=== PATIENT | female | born 1995 | race American Indian/Alaskan Native ===

== ENCOUNTER 2016-10-28 10:18 | Emergency (ER) | payer OTHER ==
[2016-10-28 11:06] VITALS: BP 122/68
[2016-10-28] MEDS ORDERED: BENADRYL PO ONE (12:54)
--- NOTE | 2016-10-28 13:45 | Emergency Department Report ---
Entered by BENJAMIN BELL, acting as scribe for NICHOLAS HERRERA PA. ED General Adult HPI - General Chief complaint: Skin Rash Stated complaint: SKIN IRRITATION /BACK AREA Time Seen by Provider: 10/28/16 12:50 Source: patient Mode of arrival: Ambulatory Limitations: No Limitations - History of Present Illness Initial comments: 21 y/o female with PMHx eczema, asthma presents to ED c/o itching to her back, now spreading to her abdomen since 1 week ago Pt states the itching and rashes affect her skin folds on her left side. She reports associated eczematous rash under her left breast. She describes a prickly, sharp pain that is worse after scratching. Pt admits to applying goldbond and her prescription triamcinolone with no relief. She reports she has also administered Benadryl with mild temporary relief. Pt also reports Hx of thyroid cancer and colon cancer, noting thyroidectomy in March, and partial colectomy in Oct, 2015 with compliance in her colonoscopies, noting her last one was last year. Pt advises she is seeking a new PCP. She has no additional complaints Onset/Timin -: Gradual, week(s) Location: back, abdomen Radiation: non-radiation Severity scale (0 -10): 0 Quality: sharp, other (prickly) Consistency: constant Improves with: other (benadryl, temporarily) Worsens with: none Associated Symptoms: rash (under left breast, eczema). denies: other (drainage) Treatments Prior to Arrival: other (benadryl, goldbond, triamcinolone) - Related Data Home Medications Medication Instructions Recorded Confirmed Last Taken Albuterol *Only Ed* [Proventil 2.5 mg IH Q4H PRN 03/03/15 12/12/15 Unknown 0.5% NEBS] Levothyroxine Sodium [Synthroid] 175 mcg PO DAILY 03/03/15 12/12/15 11/21/15 Psyllium Seed (with Sugar) 1 each PO BID 12/12/15 12/12/15 12/11/15 [Metamucil] Previous Rx's Medication Instructions Recorded Last Taken Type ALBUTEROL Inhaler [ProAir HFA 2 puff IH QID PRN #1 inhalation 03/03/15 Unknown Rx Inhaler] Albuterol Sulfate [Albuterol 0.63% 0.63 mg IH TID PRN #1 box 03/03/15 Unknown Rx NEBS] Cetirizine HCl [ZyrTEC] 10 mg PO QDAY #30 capsule 10/28/16 Unknown Rx Fluconazole [Diflucan TAB] 200 mg PO QDAY #2 tablet 10/28/16 Unknown Rx Allergies Allergy/AdvReac Type Severity Reaction Status Date / Time yoel AdvReac Intermediate Swelling Uncoded 09/25/15 12:19 ED Review of Systems Comment: All other systems reviewed and negative Constitutional: denies: chills, fever Skin: rash (under left breast), pruritus (back, abdomen) ED Past Medical Hx - Past Medical History Hx Asthma: Yes Additional medical history: Hypothyroidism - Surgical History Additional Surgical History: Thyroid Sugery; Partial colon removed - Social History Smoking Status: Never Smoker Substance Use Type: None - Medications Home Medications: Home Medications Medication Instructions Recorded Confirmed Last Taken Type ALBUTEROL Inhaler [ProAir HFA 2 puff IH QID PRN #1 inhalation 03/03/15 12/12/15 Unknown Rx Inhaler] Albuterol *Only Ed* [Proventil 2.5 mg IH Q4H PRN 03/03/15 12/12/15 Unknown History 0.5% NEBS] Albuterol Sulfate [Albuterol 0.63% 0.63 mg IH TID PRN #1 box 03/03/15 12/12/15 Unknown Rx NEBS] Levothyroxine Sodium [Synthroid] 175 mcg PO DAILY 03/03/15 12/12/15 11/21/15 History Psyllium Seed (with Sugar) 1 each PO BID 12/12/15 12/12/15 12/11/15 History [Metamucil] Cetirizine HCl [ZyrTEC] 10 mg PO QDAY #30 capsule 10/28/16 Unknown Rx Fluconazole [Diflucan TAB] 200 mg PO QDAY #2 tablet 10/28/16 Unknown Rx ED Physical Exam - General Limitations: No Limitations - Other Other exam information: GENERAL: Patient is alert and oriented x 3. No apparent distress, normal gait, atraumatic. HEAD: Head is normocephalic and atraumatic. EYES: Extraocular movements are intact. Pupils are equal, round, and reactive to light and accommodation. EARS: Symmetrical, atraumatic, non tender, ear canal clear with moderate cerumen , tympanic membrane non inflamed. Gross auditory nml bilaterally. NOSE: Nose symmetrical, nontender. Nares appeared normal. MOUTH:Mouth is well hydrated and without lesions. Mucous membranes are moist. Uvula midline. Tongue not elevated. Posterior pharynx clear, no exudate or lesions. Tonsils are not erythematous or swollen. Patent airway. NECK: Supple. Non edematous, no carotid bruits. No lymphadenopathy or thyromegaly. LUNGS: Symmetrical with respiration. No wheezing, rales or crackles, CTAB. HEART: Regular rate and rhythm with normal S1/S2 present. No murmurs, rubs, or gallops. ABDOMEN: Soft, nondistended. Nontender to palpation on all quadrants. No organomegaly was noted. Positive bowel sounds. No CVA tenderness. SKIN: Warm and dry. Rash noted to skin folds on left back, flank, abdomen that is hyperpigmented with peeling edges and with no discharge, no odor, no moisture PSYCHIATRIC: Mood is congruent with affect. Denies suicidal or homicidal ideations. ED Course Vital Signs 10/28/16 11:04 Temperature 98.4 F Pulse Rate 66 Respiratory 16 Rate Blood Pressure 122/68 O2 Sat by Pulse 100 Oximetry ED Medical Decision Making - Medical Decision Making 21 year old female patient presents today with pruritis to left back, flank, abdomen in her skin folds and eczematous rash under her left breast. Patient is in no acute distress at this time. She will be discharged home with Benadryl, Zyrtec, and Diflucan and is encouraged to follow up with a primary care provider. Patient referred to Dr. Cooper at [facility] as she is searching for a new PCP. She is instructed to apply cornstarch or goldbond powder to her skin folds to alleviate moisture. She is encouraged to return to the emergency room for any worsening symptoms. ED Disposition Clinical Impression: Rash Disposition: DISCHARGED TO HOME OR SELFCARE Is pt being admited?: No Does the pt Need Aspirin: No Condition: Stable Instructions: Acute Rash (ED) Additional Instructions: Please take your Benadryl, Zyrtec, and Diflucan as prescribed. You may also apply goldbond powder or cornstarch to the affected skin folds for relief. I do not recommend application of talc powder as this increases risk for ovarian cancer. You are also receiving a referral to [facility] for Dr. Cooper, who you should follow up with. Prescriptions: Cetirizine HCl [ZyrTEC] 10 mg PO QDAY #30 capsule Fluconazole [Diflucan TAB] 200 mg PO QDAY #2 tablet Referrals: PRIMARY CARE, [Primary Care Provider] - 3-5 Days AKILA COOPER MD [Staff Physician] - 3-5 Days Forms: Work/School Release Form(ED) This documentation as recorded by the RAY rollins AHSAN,accurately reflects the service I personally performed and the decisions made by me,NICHOLAS HERRERA PA.
== END 2016-10-28 13:48 | disposition home or self-care (01) ==
LOC: ED 10:18
DX: R21 Rash and other nonspecific skin eruption (principal); J45.909 Unspecified asthma, uncomplicated; E03.9 Hypothyroidism, unspecified; Z91.018 Allergy to other foods
CPT/HCPCS: 99282

== ENCOUNTER 2016-12-07 19:12 | Emergency (ER) | payer OTHER ==
[2016-12-07] MEDS ORDERED: TYLENOL ONE (19:54)
[2016-12-07] MEDS ORDERED: TYLENOL PO ONE (20:04)
[2016-12-07 20:24] LABS: Basophils % (Auto) 1.1 % (0.0-1.8); Eosinophils % (Auto) 1.5 % (0.0-4.3); Hematocrit 37.7 % (30.3-42.9); Hemoglobin 12.3 gm/dl (10.1-14.3); Mean Corpuscular HGB Conc 33 % (30-34); Mean Corpuscular Hemoglobin 28 pg (28-32); Mean Corpuscular Volume 86 fl (79-97); Platelet Count 272 K/mm3 (140-440); Red Blood Count 4.39 M/mm3 (3.65-5.03); Red Cell Distribution Width 14.6 % (13.2-15.2); White Blood Count 7.3 K/mm3 (4.5-11.0)
[2016-12-07 20:32] LABS: Alanine Aminotransferase 14 units/L (7-56); Albumin 4.2 g/dL (3.9-5); Albumin/Globulin Ratio 1.1 %; Alkaline Phosphatase 51 units/L (35-129); Anion Gap 18 mmol/L; BUN/Creatinine Ratio 5.45; Blood Urea Nitrogen 6 mg/dL (7-17); Calcium 8.7 mg/dL (8.4-10.2); Carbon Dioxide 25 mmol/L (22-30); Chloride 99.5 mmol/L (98-107); Glucose 96 mg/dL (65-100); Lipase 35 units/L (13-60); Sodium 138 mmol/L (137-145); Total Protein 7.9 g/dL (6.3-8.2)
[2016-12-07 20:41] LABS: Bilirubin,Urine NEG (Negative); Blood,Urine NEG (Negative); Ketones,Urine NEG (Negative); Leukocyte Esterase,Urine NEG (Negative); Mucus,Urine FEW /HPF; Nitrite,Urine NEG (Negative); Protein,Urine <15 mg/dL mg/dL (Negative); Urobilinogen,Urine < 2.0 mg/dL (<2.0)
[2016-12-08] MEDS ORDERED: NACL ONE (05:54)
--- NOTE | 2016-12-08 06:24 | Cat Scan Report ---
FINAL REPORT PROCEDURE: CT ABDOMEN PELVIS W CON TECHNIQUE: Computerized axial tomography of the abdomen and pelvis was performed after the IV injection of iodinated nonionic contrast. HISTORY: pain, N V COMPARISON: No prior studies are available for comparison. FINDINGS: Visualized lower thorax: No significant abnormality. Liver: Normal size and attenuation. Spleen: Normal size and attenuation. Gallbladder and biliary system: Normal. Pancreas: Normal. Adrenals: Normal. Kidneys: Normal. GI tract: No obstruction. No ileus or enteritis. The cecum, appendix region and colon are normal. Moderate fecal debris in the lower colon.. Lymph nodes and mesentery: Normal. Vasculature: Normal. Bladder: Normal. Reproductive organs: Normal. Peritoneum: No free fluid. Musculoskeletal structures: No significant abnormality. Other: None. IMPRESSION: There is no evidence of intestinal or urinary tract obstruction. No ileus or enteritis.
--- NOTE | 2016-12-08 09:18 | Emergency Department Report ---
ED General Adult HPI - General Chief complaint: Abdominal Pain Stated complaint: VOMITING/FATIGUE/DIZZINESS/THROAT PAIN Time Seen by Provider: 12/08/16 08:38 Source: patient Mode of arrival: Ambulatory Limitations: No Limitations - History of Present Illness Initial comments: Patient states that she's had lower abdominal pain for one week. She claims that she's had colon surgery for cancer about one year ago. She never had chemotherapy. She states that her next checkup is in one year. She states that she does not have a primary care provider and has not followed up with her surgeon. She had labs and CT of the abdomen prior to arrival. On my encounter she is found laying in the gurney with her significant other. She is in no distress. She is not having any substantial abdominal pain at this time. She denies fever or chills. She has not had any change in her bowel habits nor any nausea or vomiting. All her care was obtained at [facility]. -: week(s) Location: abdomen Radiation: non-radiation Quality: aching Consistency: intermittent Improves with: none Worsens with: none Associated Symptoms: denies other symptoms Treatments Prior to Arrival: none - Related Data Home Medications Medication Instructions Recorded Confirmed Last Taken Albuterol *Only Ed* [Proventil 2.5 mg IH Q4H PRN 03/03/15 12/12/15 Unknown 0.5% NEBS] Levothyroxine Sodium [Synthroid] 175 mcg PO DAILY 03/03/15 12/12/15 11/21/15 Psyllium Seed (with Sugar) 1 each PO BID 12/12/15 12/12/15 12/11/15 [Metamucil] Previous Rx's Medication Instructions Recorded Last Taken Type ALBUTEROL Inhaler [ProAir HFA 2 puff IH QID PRN #1 inhalation 03/03/15 Unknown Rx Inhaler] Albuterol Sulfate [Albuterol 0.63% 0.63 mg IH TID PRN #1 box 03/03/15 Unknown Rx NEBS] Cetirizine HCl [ZyrTEC] 10 mg PO QDAY #30 capsule 10/28/16 Unknown Rx Fluconazole [Diflucan TAB] 200 mg PO QDAY #2 tablet 10/28/16 Unknown Rx traMADol [Ultram] 50 mg PO Q6HR PRN #14 tablet 12/08/16 Unknown Rx Allergies Allergy/AdvReac Type Severity Reaction Status Date / Time yoel AdvReac Intermediate Swelling Uncoded 09/25/15 12:19 ED Review of Systems ROS: Stated complaint: VOMITING/FATIGUE/DIZZINESS/THROAT PAIN Other details as noted in HPI Constitutional: denies: chills, fever Eyes: denies: eye pain, eye discharge, vision change ENT: denies: ear pain, throat pain Respiratory: denies: cough, shortness of breath, wheezing Cardiovascular: denies: chest pain, palpitations Endocrine: no symptoms reported Gastrointestinal: as per HPI, abdominal pain. denies: nausea, diarrhea Genitourinary: denies: urgency, dysuria, discharge Musculoskeletal: denies: back pain, joint swelling, arthralgia Skin: denies: rash, lesions Neurological: denies: headache, weakness, paresthesias Psychiatric: denies: anxiety, depression Hematological/Lymphatic: denies: easy bleeding, easy bruising ED Past Medical Hx - Past Medical History Previous Medical History?: Yes Hx Asthma: Yes Additional medical history: Hypothyroidism - Surgical History Past Surgical History?: Yes Additional Surgical History: Thyroid Sugery; Partial colon removed - Social History Smoking Status: Never Smoker Substance Use Type: None - Medications Home Medications: Home Medications Medication Instructions Recorded Confirmed Last Taken Type ALBUTEROL Inhaler [ProAir HFA 2 puff IH QID PRN #1 inhalation 03/03/15 12/12/15 Unknown Rx Inhaler] Albuterol *Only Ed* [Proventil 2.5 mg IH Q4H PRN 03/03/15 12/12/15 Unknown History 0.5% NEBS] Albuterol Sulfate [Albuterol 0.63% 0.63 mg IH TID PRN #1 box 03/03/15 12/12/15 Unknown Rx NEBS] Levothyroxine Sodium [Synthroid] 175 mcg PO DAILY 03/03/15 12/12/15 11/21/15 History Psyllium Seed (with Sugar) 1 each PO BID 12/12/15 12/12/15 12/11/15 History [Metamucil] Cetirizine HCl [ZyrTEC] 10 mg PO QDAY #30 capsule 10/28/16 Unknown Rx Fluconazole [Diflucan TAB] 200 mg PO QDAY #2 tablet 10/28/16 Unknown Rx traMADol [Ultram] 50 mg PO Q6HR PRN #14 tablet 12/08/16 Unknown Rx ED Physical Exam - General Limitations: No Limitations General appearance: alert, in no apparent distress - Head Head exam: Present: atraumatic, normocephalic - Eye Eye exam: Present: normal appearance. Absent: scleral icterus - ENT ENT exam: Present: mucous membranes moist - Neck Neck exam: Present: normal inspection. Absent: tenderness, meningismus - Respiratory Respiratory exam: Present: normal lung sounds bilaterally. Absent: respiratory distress - Cardiovascular Cardiovascular Exam: Present: regular rate, normal rhythm. Absent: systolic murmur, diastolic murmur, rubs, gallop - GI/Abdominal GI/Abdominal exam: Present: soft, normal bowel sounds, other (laparoscopy scars noted). Absent: distended, tenderness, guarding, rebound, rigid, organomegaly, mass, bruit, pulsatile mass, hernia - Extremities Exam Extremities exam: Present: normal inspection - Back Exam Back exam: Present: normal inspection - Neurological Exam Neurological exam: Present: alert, oriented X3, CN II-XII intact. Absent: motor sensory deficit - Psychiatric Psychiatric exam: Present: normal affect, normal mood - Skin Skin exam: Present: warm, dry, intact, normal color. Absent: rash ED Course Vital Signs 12/07/16 12/08/16 12/08/16 19:40 00:19 03:43 Temperature 98 F 97.5 F L 97.6 F Pulse Rate 74 51 L 60 Respiratory 18 18 18 Rate Blood Pressure 146/85 159/101 Blood Pressure 153/90 [Right] O2 Sat by Pulse 100 100 100 Oximetry - Reevaluation(s) Reevaluation #1: The patient is appropriate for outpatient disposition. She has no significant abdominal pain at this time. Her workup here is essentially negative. I strongly encouraged her to improve for follow-up care. I will also give her the name of our gastroenterology group. 12/08/16 09:21 ED Medical Decision Making - Lab Data Result diagrams: 12/07/16 19:59 12/07/16 19:59 Laboratory Results - last 24 hr 12/07/16 12/07/16 12/07/16 19:59 19:59 19:59 WBC 7.3 RBC 4.39 Hgb 12.3 Hct 37.7 MCV 86 MCH 28 MCHC 33 RDW 14.6 Plt Count 272 Lymph % (Auto) 18.9 Mathews % (Auto) 4.7 Eos % (Auto) 1.5 Baso % (Auto) 1.1 Lymph # 1.4 Mathews # 0.3 Eos # 0.1 Baso # 0.1 Seg Neutrophils % 73.8 H Seg Neutrophils # 5.3 Sodium 138 Potassium 4.0 Chloride 99.5 Carbon Dioxide 25 Anion Gap 18 BUN 6 L Creatinine 1.1 Estimated GFR > 60 BUN/Creatinine Ratio 5.45 Glucose 96 Calcium 8.7 Total Bilirubin 0.20 AST 31 ALT 14 Alkaline Phosphatase 51 Total Protein 7.9 Albumin 4.2 Albumin/Globulin Ratio 1.1 Lipase 35 HCG, Qual Negative Urine Color Urine Turbidity Urine pH Ur Specific Linden Urine Protein Urine Glucose (UA) Urine Ketones Urine Blood Urine Nitrite Urine Bilirubin Urine Urobilinogen Ur Leukocyte Esterase Urine WBC (Auto) Urine RBC (Auto) U Epithel Cells (Auto) Urine Mucus 12/07/16 20:22 WBC RBC Hgb Hct MCV MCH MCHC RDW Plt Count Lymph % (Auto) Mathews % (Auto) Eos % (Auto) Baso % (Auto) Lymph # Mathews # Eos # Baso # Seg Neutrophils % Seg Neutrophils # Sodium Potassium Chloride Carbon Dioxide Anion Gap BUN Creatinine Estimated GFR BUN/Creatinine Ratio Glucose Calcium Total Bilirubin AST ALT Alkaline Phosphatase Total Protein Albumin Albumin/Globulin Ratio Lipase HCG, Qual Urine Color Yellow Urine Turbidity Clear Urine pH 7.0 Ur Specific Linden 1.018 Urine Protein <15 mg/dl Urine Glucose (UA) Neg Urine Ketones Neg Urine Blood Neg Urine Nitrite Neg Urine Bilirubin Neg Urine Urobilinogen < 2.0 Ur Leukocyte Esterase Neg Urine WBC (Auto) 1.0 Urine RBC (Auto) 2.0 U Epithel Cells (Auto) 3.0 Urine Mucus Few Critical care attestation.: If time is entered above; I have spent that time in minutes in the direct care of this critically ill patient, excluding procedure time. ED Disposition Clinical Impression: History of colon cancer Abdominal pain Qualifiers: Abdominal location: lower abdomen, unspecified Qualified Code(s): R10.30 - Lower abdominal pain, unspecified Disposition: TO HOME OR SELFCARE Is pt being admited?: No Does the pt Need Aspirin: No Condition: Stable Instructions: Abdominal Pain (ED) Additional Instructions: I would strongly recommend that you follow-up with your GI doctor and/or surgeon concerning the status of your condition. Your tests today were normal. However, I believe closer follow-up than every 2 years would be advisable. Of also given U the name of our GI specialists group. Prescriptions: traMADol [Ultram] 50 mg PO Q6HR PRN #14 tablet PRN Reason: Pain Referrals: PRIMARY CARE, [Primary Care Provider] - 3-5 Days [facility] [Provider Group] - 3-5 Days Time of Disposition: 09:24
[2016-12-08 09:53] VITALS: BP 146/84
== END 2016-12-08 09:33 | disposition home or self-care (01) ==
LOC: ED 19:12
DX: R10.30 Lower abdominal pain, unspecified (principal); J45.909 Unspecified asthma, uncomplicated; E03.8 Other specified hypothyroidism; Z85.038 Personal history of other malignant neoplasm of large intestine; Z91.018 Allergy to other foods
CPT/HCPCS: 36415; 74177; 80053; 81001; 83690; 84703; 85025; 87116; 87430; 99284; Q9967